=== PATIENT | female | born 1970 | race Caucasian/White ===

== ENCOUNTER 2017-02-06 13:40 | Inpatient (IN) | payer OTHER ==
[~2017-02-06] VITALS: Ht 152.4 cm; Wt 142.0 kg
--- NOTE | ~2017-02-06 | HC ---
[facility] [place] [address] [place] [address] CONSULTATION Name: DANY DANIEL Room #: 448-P [facility] IN ..#: [id number] Admission: 02/06/17 Attend Phys: Matthew Moore Discharge: 02/09/17 Date of : 74 Report #: [id number] THIS REPORT FOR: //name// CC: OMI physician/PCP Matthew Moore DATE OF SERVICE: 02/09/2017 REASON FOR CONSULTATION: Open surgical wound of left posterior thigh, status post surgical incision and drainage of left thigh subcutaneous abscess, subsequent cultures positive for MRSA in the setting of morbid obesity and diabetes mellitus type 2. HISTORY OF PRESENT ILLNESS: The patient is a very pleasant 46-year-old woman suffering from morbid obesity who has had surgery for morbid obesity in the past and gastric banding in 2006. She carries a diagnosis of diabetes mellitus type 2, diet controlled, but does not take any hypoglycemic drugs. The patient was admitted to the emergency room on February 06, complaining of cough, shortness of breath, and fever. For 5 days prior to admission, the patient had developed a small red, tender area on her posterior left thigh. This was incised and drained by an outside physician. The patient was given a shot of Rocephin and a prescription for Bactrim. The site became worse, Keflex was added, continued to have pain, redness, swelling and tenderness of the posterior leg and her breathing became worse, she was therefore admitted to the emergency room. Subsequently, Dr. Cb Stanley had taken the patient to the operating room on the evening of February 07, and performed wide incision and drainage of a left thigh deep subcutaneous abscess with wide blowing open of the wound. Wound cultures subsequently have shown methicillin-resistant Staphylococcus aureus. Wound care is consulted for subsequent postoperative care of the wound. PAST MEDICAL HISTORY: Morbid obesity, diabetes mellitus type 2, diet controlled; hypothyroidism, depression, and asthma. PAST SURGICAL HISTORY: Laparoscopic gastric banding in 2006, tonsillectomy, and clubfoot repair. ALLERGIES: NEOSPORIN, PENICILLIN, ZOCOR, AND DEMEROL. FAMILY HISTORY: Noncontributory. SOCIAL HISTORY: The patient is , lives with her . REVIEW OF SYSTEMS: The patient admitted with fevers and chills, some respiratory distress. PHYSICAL EXAMINATION: [facility] [address] [place] [address] CONSULTATION Name: DANY DANIEL Room #: 448-P [facility] IN M.R.#: [id number] Admission: 02/06/17 Attend Phys: Matthew Moore Discharge: 02/09/17 Date of : 74 Report #: [id number] GENERAL: Shows well-appearing, morbidly obese, middle-aged female, currently afebrile. HEENT: Mucous membranes moist. NECK: Supple. LUNGS: Respirations unlabored. ABDOMEN: Morbidly obese. EXTREMITIES: Shows in her left mid posterior thigh, a horizontal laid open skin incision measuring approximately 8 cm long, 1.5 cm wide and 2 cm deep, minimal surrounding erythema, appears that all purulent material has been drained. There is some mariscal discolored fibrinous exudate on the surface of the wound. All pus appears to have been drained. IMPRESSION: 1. Morbid obesity. 2. Diabetes mellitus type 2, diet controlled, not under medical supervision. 3. Methicillin-resistant staphylococcus aureus skin infection of the left posterior thigh with deep subcutaneous abscess, postoperative day #2, status post surgical incision and drainage. PLAN: Continue IV antibiotics per infectious disease for MRSA, quarter strength Dakin's packing to the wound twice daily. Once wound is clean, we will consider negative pressure wound therapy with a wound VAC device. Wound care team will follow in hospital. <ELECTRONICALLY SIGNED> By: Perfecto Alex MD 02/11/17 0649 [id number] [id number] Perfecto Alex MD /nt
--- NOTE | ~2017-02-06 | S ---
[facility] [place] [address] [place] [address] SURGICAL PATH RPT PROCEDURE Name: DANY CLIFTON A Room #: 448-P [facility] IN M.R.#: [id number] Admission: 02/06/17 Date of : 74 Discharge: 02/09/17 Report #: [id number] Path Case #: [id number] PATHOLOGY REPORT COLLECTION DATE: 02/07/2017 RECEIVED DATE: 02/09/2017 SUBMITTING PHYS: Dr. Cb Stanley, DO OTHER PHYS: Dr. Matthew Moore SPECIMEN(S) RECEIVED: A.Left posterior thigh necrotic skin and tissue * * * * * * * * * * * * FINAL DIAGNOSIS: Skin and subcutaneous tissue, "left posterior thigh", debridement: - Subcutaneous tissue with acute abscess and focal necrosis. - Overlying hyperplastic squamous epithelium with mild hyperkeratosis. (SKM:cedric; 02/10/2017) PATHOLOGIST: Edilma Pressley M.D. REPORT ELECTRONICALLY SIGNED BY: Edilma Pressley M.D. DATE/TIME: 02/10/2017 11:54 * * * * * * * * * * * * GROSS PATHOLOGY: Received in formalin labeled "Dany Clifton, left posterior thigh necrotic tissue" and consists of two segments of an oriented skin. The first measures 4.5 x 1.3 cm, and excised to a depth 1.7 cm, and the second measures 4.5 x 1.3 cm, and excised to a depth of 3 cm. The epidermal surface of each segment is adams to focally mariscal. One segment is inked blue and the other black. Sectioning each reveals glistening yellow orange subcutaneous tissue. There is minimal brown red areas of discoloration identified, grossly resembling necrosis. No masses are identified. Line Analyst sections are submitted as A1. (RADHA; 02/09/2017) CLINICAL HISTORY: Left posterior thigh abscess with cellulitis. INITIAL CPT CODE(S): A; 00473 Professional services performed by Patient Communicator at [address] [address] SURGICAL PATH RPT PROCEDURE Name: MARÍADANY Room #: 448-P [facility] IN M.R.#: [id number] Admission: 02/06/17 Date of : 74 Discharge: 02/09/17 Report #: [id number] Path Case #: [id number] [address] [facility] , [place] [address] Technical services performed by Patient Communicator at [address] [place] [address], [address], [place] [address]. [facility] [place] [address] PHONE: [phone] DIRECTOR: Jon Mcwilliams M.D. * * * END OF REPORT * * *
--- NOTE | ~2017-02-06 | HC ---
[facility] [place] [address] CONSULTATION Name: DANY DANIEL Room #: 448-P ADM IN M.R.#: [id number] Admission: 02/06/17 Attend Phys: Matthew Moore Discharge: Date of : 74 Report #: [id number] THIS REPORT FOR: //name// CC: OMI physician/PCP Matthew Moore DATE OF SERVICE: 02/06/2017 CONSULTATION: Infectious Diseases. HISTORY OF PRESENT ILLNESS: Ms Daniel is a 46-year-old white female who comes to [facility] on the day of consultation, complaining of cough, shortness of breath making her asthma worse. The patient was having fevers to 101 at home. The patient reports that approximately 5 days prior to admission, she developed a "pimple" on the posterior left thigh, this enlarged and became red, warm, tender and very painful. She went to her doctor on Wednesday and had what sounds like a bedside incision and drainage. She says cultures were done. She was given a shot of Rocephin and a prescription for Bactrim. She returned the following day and the site was worse. She had another shot of the Rocephin. On Wednesday, it appeared like it was doing maybe a little bit better. Keflex was added to the regimen, but by Wednesday, the patient was worse. She particularly noted in difficulty with breathing with exacerbation of her asthma. The patient said, if it was just her leg, she probably would have stayed home; but with the dyspnea, she came to the ER. There, a more extensive bedside debridement with local anesthetic was done. Now the patient has 2 areas opened up, with a through and through loop of packing gauze. The patient was admitted to the hospital and Infectious Disease consultation was requested. PAST MEDICAL HISTORY: Significant for diabetes, hypothyroidism, depression, hyperlipidemia, and asthma. PAST SURGICAL HISTORY: Includes laparoscopic gastric banding in 2006. The patient states she lost 50 pounds, but radually gained it all back. She has a history of tonsillectomy, clubbed foot repair. She currently weighs 299 pounds. ALLERGIES:THE PATIENT NOTES ALLERGIES TO THE COMPONENTS OF NEOSPORIN WELL PENICILLIN, ZOCOR, AND DEMEROL. FAMILY HISTORY: Noncontributory. SOCIAL HISTORY: The patient is . She lives at home with her . They have no children. She does not use tobacco or alcohol. No drugs. [address] [address] CONSULTATION Name: DANY DANIEL Room #: 448-P [facility] IN ..#: [id number] Admission: 02/06/17 Attend Phys: Matthew Moore Discharge: Date of : 74 Report #: [id number] REVIEW OF SYSTEMS: The patient is complaining of fevers, chills, malaise and weakness. ENT: No headache, sinus congestion, drainage, sore throat, trouble swallowing. CHEST: The patient has a cough, which is mostly dry. She has dyspnea at rest and wheezing. No chest pain, no angina or syncope, no arrhythmia. GASTROINTESTINAL: The patient denies nausea, vomiting, diarrhea, or constipation. GENITOURINARY: The patient denies urinary complaints. EXTREMITIES: The patient notes discomfort in her left thigh. PHYSICAL EXAMINATION: VITAL SIGNS: The patient was found to be febrile in the ER at 38.4, temperature was as high as 39.4. SKIN: Shows the small abscess in the left posterior thigh. There are 2 wounds about 5 mm each with the looped packing gauze. There is minimal drainage on the dressing, there is an area of erythema at about 10 cm from the buttock to about midway down the thigh. ENT: Normal. NECK: Supple. HEART: Sounds S1, S2. Regular rate and rhythm. LUNGS: Breath sounds have some scattered wheezes with reasonably good air movement anteriorly and posterior. ABDOMEN: Belly is obese, soft, nontender. EXTREMITIES: Otherwise unremarkable. PSYCHIATRIC: Mental status normal. LABORATORY DATA: White count is 4.5, hemoglobin 13, hematocrit 38.4%, platelets 243,000. Electrolytes, BUN and creatinine are normal. Glucose is 194. Lactate, TSH, liver function tests are normal. In summary, this is a patient who had an abscess on her leg, which has been drained and treated with antibiotics, but did not improve until she was hospitalized and started on vancomycin and meropenem, after more extensive drainage in the ER. During this treatment for her abscess, her asthma had an exacerbation with dyspnea and had a left lower lobe patchy infiltrate. At this point in time, vancomycin and meropenem is a reasonable regimen for patient who has failed outpatient Rocephin and Bactrim and has a history of penicillin allergy. The patient states she is feeling better since coming to the hospital. Cultures were obtained in the ER and I hope to have results to base further therapy in the next 24-48 hours. It may be worthwhile to do an MRSA swab of the nares. We should continue aerosolized bronchodilators and incentive spirometry. At some point, we may want to do a followup chest x-ray. At this time, I do not think the abscess will need more extensive surgical [facility] [address] [place] [address] CONSULTATION Name: DANY DANIEL Room #: 448-P ADM IN [facility]#: [id number] Admission: 02/06/17 Attend Phys: Matthew Charles Oscar Discharge: Date of : 74 Report #: [id number] drainage. We may want to consider a sonogram to try and see the extent of abscess and phlegmon. I am hopeful that the bedside debridement done in the Emergency Room will be adequate drainage; further antibiotic therapy will be based on results of cultures. If the patient does well, it may be possible to have her home by [place] on either oral or parenteral antibiotic therapy. I appreciate the opportunity of input in the care of this pleasant patient. I will be happy to follow her through the weekend until Dr. Richardson returns on Wednesday. Thank you for this consultation. <ELECTRONICALLY SIGNED> By: Yadiel Dobbins MD 02/08/17 0938 0819 1115 Yadiel Dobbins MD /nt
[~2017-02-06 13:40] MED LIST: ALBUTEROL INHAL17 GM IH; ALEVE220 MG PO; APAP500 PO; CINNAMON; EFFEXOR XR75 MG PO; FLEXERIL PO; GLUCOPHAGE850 MG PO; IBUPROFEN 600600 M1 PO; IBUPROFEN 800800 M1 PO; LOESTRIN 24 FE1 EACH PO; MEGARED PLANT-300 MG PO; MELATONIN3 MG PO; NORCO 5-325 TA1 EACH PO; PERCOCET 5-3251 EACH PO; PREDNISONE 20 M20 M1 PO; PROAIR HFA8.5 GM INH; SINGULAIR 10 MG10 MG PO; SYNTHROID125 MCG PO; TRAZODONE 150150 M1 PO; ULTRAM 50MG TAB50 MG PO; VENTOLIN HFA 1818 GM; VITAMIN D400 UNI1 PO; WELLBUTRIN 100100 MG PO; WELLBUTRIN XL300 M1; ZETIA10 MG PO; ZOLOFT100 MG PO; [UNRECOGNIZED DRUG - CODE] PO
[2017-02-06 13:41] VITALS: BP 159/85
[2017-02-06] MEDS ORDERED: NORCO 5-325 TA1 EACH PO (13:55)
[2017-02-06] MEDS ORDERED: IBUPROFEN 800800 M1 PO (13:55)
[2017-02-06] MEDS ORDERED: MELATONIN3 MG PO (13:56)
[2017-02-06] MEDS ORDERED: AMARYL2 MG PO (13:56)
[2017-02-06] MEDS ORDERED: VITAMIN D2000 UNIT PO (13:56)
[2017-02-06 14:20] LABS: ABSOLUTE NEUTROPHILS 3.5 thou/uL (1.4-8.2); BASOPHILS 0.6 % (0.0-2.0); EOSINOPHILS 4.6 % (0.0-3.0); HEMATOCRIT 38.4 % (37.0-47.0); LYMPHOCYTES 10.8 % (24.0-44.0); MCH 30.7 pg (26.0-34.0); MCHC 33.8 g/dL (28.0-37.0); MCV 90.8 fL (80.0-100.0); MONOCYTES 6.6 % (1.0-8.0); PLATELET COUNT 243 thou/uL (150-400); POLYS 77.4 % (36.0-66.0); RBC 4.23 mil/uL (4.20-5.00); RDW 13.4 % (10.5-14.5); WBC 4.5 thou/uL (4.0-11.0)
[2017-02-06 14:21] LABS: MANUAL DIFF NO
[2017-02-06 14:27] LABS: CALCIUM 8.2 mg/dL (8.5-10.1); CREATININE 0.8 mg/dL (0.6-1.0); POTASSIUM 3.9 mmol/L (3.5-5.1)
[2017-02-06 14:33] LABS: ALBUMIN 2.8 g/dL (3.4-5.0); TOTAL BILIRUBIN 0.5 mg/dL (<0.1-1.0); TOTAL PROTEIN 6.2 g/dL (6.4-8.2)
[2017-02-06 16:21] VITALS: BP 137/62
[2017-02-06 16:45] VITALS: BP 143/65
[2017-02-06 20:44] VITALS: BP 129/42
[2017-02-07] VITALS (10 sets, daily range): BP systolic 112–144; BP diastolic 32–68
[2017-02-07 01:05] LABS: GLYCOHEMOGLOBIN (HGB A1C) 6.8 % (4.8-5.6)
[2017-02-08 04:00] VITALS: BP 113/58
[2017-02-08 08:00] VITALS: BP 135/76
[2017-02-08 16:00] VITALS: BP 147/92
[2017-02-08 20:28] VITALS: BP 142/85
[2017-02-09 08:15] VITALS: BP 148/92
[2017-02-09] MEDS ORDERED: ZYVOX600 MG PO (11:21)
[2017-02-09] MEDS ORDERED: LANTUS SUBQ (11:22)
[2017-02-09] MEDS ORDERED: NOVOLOG100 UNIT/1 SUBQ (11:22)
[2017-02-09 12:04] VITALS: BP 148/92
== END 2017-02-09 16:35 | disposition home or self-care (01) | DRG 854 ==
LOC: ER 13:40 → 4S 16:04 → EROBS 16:04 → 4S 16:32 → ENTRNSPT 02-09 16:13 → EDTRNSPT 02-09 16:17 → 4S 02-09 16:35
PROVIDERS: Hospitalist; Physician Assistant
PROC: 0JBM0ZZ Excision of Left Upper Leg Subcutaneous Tissue and Fascia, Open Approach (ICD-10-PCS; principal; 2017-02-07)
PROC: 5A09357 Assistance with Respiratory Ventilation, Less than 24 Consecutive Hours, Continuous Positive Airway Pressure (ICD-10-PCS; 2017-02-07)
DX: A41.9 Sepsis, unspecified organism (principal); L02.416 Cutaneous abscess of left lower limb; Z68.44 Body mass index [BMI] 60.0-69.9, adult; L03.116 Cellulitis of left lower limb; E03.9 Hypothyroidism, unspecified; J45.909 Unspecified asthma, uncomplicated; F32.9 Major depressive disorder, single episode, unspecified; K21.9 Gastro-esophageal reflux disease without esophagitis; E78.00 Pure hypercholesterolemia, unspecified; E11.9 Type 2 diabetes mellitus without complications; E78.5 Hyperlipidemia, unspecified; E66.01 Morbid (severe) obesity due to excess calories; B95.62 Methicillin resistant Staphylococcus aureus infection as the cause of diseases classified elsewhere; Z79.899 Other long term (current) drug therapy; Z90.49 Acquired absence of other specified parts of digestive tract; Z88.6 Allergy status to analgesic agent; Z88.1 Allergy status to other antibiotic agents; Z88.0 Allergy status to penicillin; Z88.8 Allergy status to other drugs, medicaments and biological substances
CPT/HCPCS: 10195; 50010; 50101; 50386; 50403; 62110; 62900; 70005

== ENCOUNTER → 2017-02-18 | Outpatient (CLI) | payer OTHER ==
[~2017-02-18] MED LIST changes: +AMARYL2 MG PO; +LANTUS SUBQ; +NOVOLOG100 UNIT/1 SUBQ; +VITAMIN D2000 UNIT PO; +ZYVOX600 MG PO
== END ==
LOC: HYPER 02-17 14:31
DX: T81.89XA Other complications of procedures, not elsewhere classified, initial encounter (principal); E11.622 Type 2 diabetes mellitus with other skin ulcer; L97.121 Non-pressure chronic ulcer of left thigh limited to breakdown of skin; E66.01 Morbid (severe) obesity due to excess calories; E03.9 Hypothyroidism, unspecified; J45.909 Unspecified asthma, uncomplicated; E78.00 Pure hypercholesterolemia, unspecified; F32.9 Major depressive disorder, single episode, unspecified; Z72.89 Other problems related to lifestyle; Z68.42 Body mass index [BMI] 45.0-49.9, adult; Y83.8 Other surgical procedures as the cause of abnormal reaction of the patient, or of later complication, without mention of misadventure at the time of the procedure; Y92.89 Other specified places as the place of occurrence of the external cause

== ENCOUNTER → 2017-03-03 | Outpatient (CLI) | payer OTHER | LOC: HYPER 06:51 | DX: T81.89XD Other complications of procedures, not elsewhere classified, subsequent encounter (principal); E11.622 Type 2 diabetes mellitus with other skin ulcer; L97.121 Non-pressure chronic ulcer of left thigh limited to breakdown of skin; E66.01 Morbid (severe) obesity due to excess calories; Z68.42 Body mass index [BMI] 45.0-49.9, adult; E03.9 Hypothyroidism, unspecified; F32.9 Major depressive disorder, single episode, unspecified; J45.909 Unspecified asthma, uncomplicated; E78.00 Pure hypercholesterolemia, unspecified; E78.5 Hyperlipidemia, unspecified; Z86.14 Personal history of Methicillin resistant Staphylococcus aureus infection; Z72.89 Other problems related to lifestyle; Y83.8 Other surgical procedures as the cause of abnormal reaction of the patient, or of later complication, without mention of misadventure at the time of the procedure ==

== ENCOUNTER → 2017-03-23 | Outpatient (CLI) | payer OTHER | LOC: HYPER 06:56 | DX: T81.89XD Other complications of procedures, not elsewhere classified, subsequent encounter (principal); E11.622 Type 2 diabetes mellitus with other skin ulcer; E03.9 Hypothyroidism, unspecified; E78.00 Pure hypercholesterolemia, unspecified; F32.9 Major depressive disorder, single episode, unspecified; J45.909 Unspecified asthma, uncomplicated; E66.01 Morbid (severe) obesity due to excess calories; Z68.42 Body mass index [BMI] 45.0-49.9, adult; Z72.89 Other problems related to lifestyle; Y83.8 Other surgical procedures as the cause of abnormal reaction of the patient, or of later complication, without mention of misadventure at the time of the procedure ==

== ENCOUNTER → 2017-04-13 | Outpatient (CLI) | payer OTHER | LOC: HYPER 07:09 | DX: T81.89XD Other complications of procedures, not elsewhere classified, subsequent encounter (principal); E11.622 Type 2 diabetes mellitus with other skin ulcer; L97.121 Non-pressure chronic ulcer of left thigh limited to breakdown of skin; E66.01 Morbid (severe) obesity due to excess calories; E03.9 Hypothyroidism, unspecified; J45.909 Unspecified asthma, uncomplicated; E78.00 Pure hypercholesterolemia, unspecified; E78.5 Hyperlipidemia, unspecified; F32.9 Major depressive disorder, single episode, unspecified; Z72.89 Other problems related to lifestyle; Z68.42 Body mass index [BMI] 45.0-49.9, adult; Y83.8 Other surgical procedures as the cause of abnormal reaction of the patient, or of later complication, without mention of misadventure at the time of the procedure ==

== ENCOUNTER 2020-07-22 18:56 | Emergency (ER) | payer OTHER ==
[~2020-07-22] VITALS: Ht 165.1 cm; Wt 113.4 kg
[2020-07-22 20:11] LABS: ABSOLUTE NEUTROPHILS 12.4 thou/uL (1.4-8.2); BASOPHILS 0.2 % (0.0-2.0); EOSINOPHILS 1.3 % (0.0-3.0); HEMATOCRIT 52.5 % (37.0-47.0); HEMOGLOBIN 17.5 gm/dL (12.0-15.0); LYMPHOCYTES 13.2 % (24.0-44.0); MCH 30.9 pg (26.0-34.0); MCHC 33.4 g/dL (28.0-37.0); MCV 92.4 fL (80.0-100.0); MONOCYTES 5.7 % (1.0-8.0); PLATELET COUNT 389 thou/uL (150-400); POLYS 79.6 % (36.0-66.0); RBC 5.68 mil/uL (4.20-5.00); WBC 15.6 thou/uL (4.0-11.0)
[2020-07-22 20:24] LABS: CALCIUM 9.4 mg/dL (8.5-10.1); CREATININE 1.4 mg/dL (0.6-1.0); POTASSIUM 4.1 mmol/L (3.5-5.1)
[2020-07-22 20:42] LABS: ALBUMIN 4.4 g/dL (3.4-5.0); TOTAL PROTEIN 9.4 g/dL (6.4-8.2)
[2020-07-22] MEDS ORDERED: FLEXERIL PO (21:33)
[2020-07-23 01:56] LABS: URINE BILIRUBIN 2+ (Negative); URINE BLOOD NEGATIVE (Negative); URINE COLOR YELLOW; URINE GLUCOSE-RANDOM* NEGATIVE (Negative); URINE KETONES TRACE (Negative); URINE LEUKOCYTES-REFLEX NEGATIVE (Negative); URINE NITRITE-REFLEX NEGATIVE (Negative); URINE PROTEIN (DIPSTICK) 2+ (Negative); URINE SPECIFIC GRAVITY >= 1.030 (1.005-1.035)
[2020-07-23 01:57] LABS: ICTOTEST (BILI CONFIRMATORY) Positive (Negative); URINE CLARITY CLOUDY
[2020-07-23 02:09] LABS: MUCUS 4-6 Moderate strn/LPF (None Seen); SQUAMOUS 4-10 Moderate /LPF (0-3)
[2020-07-23 02:10] LABS: AMORPHOUS URATES Many /LPF (None Seen); BACTERIA-REFLEX 1-9 Few /HPF (None Seen); HYALINE CASTS >10 Many /LPF (None Seen); TRANSITIONAL EPITHEL CELL 0-3 Few /LPF (None Seen); URIC ACID CRYSTALS 0-3 Few /LPF (None Seen); URINE RBC None Seen /HPF (NONE SEEN); URINE WBC-REFLEX None Seen /HPF (0-5)
[2020-07-23 02:59] VITALS: BP 135/88
[2020-07-23] MEDS ORDERED: ZOFRAN ODT4 MG PO (03:05)
== END 2020-07-23 03:22 | disposition home or self-care (01) ==
LOC: ER 18:56
PROVIDERS: Physician Assistant
DX: E86.0 Dehydration (principal); R19.7 Diarrhea, unspecified; E03.9 Hypothyroidism, unspecified; J45.909 Unspecified asthma, uncomplicated; Z90.89 Acquired absence of other organs; E78.00 Pure hypercholesterolemia, unspecified; K21.9 Gastro-esophageal reflux disease without esophagitis; E11.9 Type 2 diabetes mellitus without complications; Z79.4 Long term (current) use of insulin; Z79.899 Other long term (current) drug therapy; Z88.1 Allergy status to other antibiotic agents; Z88.8 Allergy status to other drugs, medicaments and biological substances; Z88.0 Allergy status to penicillin